=== PATIENT | female | born 1965 | race Caucasian/White ===

== ENCOUNTER 2016-12-22 08:39 | Day surgery (SDC) | payer BC, OTHER ==
[2016-12-22] VITALS (15 sets, daily range): BP systolic 102–130; BP diastolic 61–74; PULSE 60–101; TEMP 97.3–98.4
[~2016-12-22] VITALS: Ht 160.1 cm; Wt 81.3 kg
[~2016-12-22 08:39] MED LIST: CELEBREX; LORTAB 5/500 501 TAB PO; MOBIC15 MG PO; NEURONTIN300 MG/CAP PO; NO HOME MEDICATIONS; PHENERGAN 25 TA25 MG PO; SEPTRA DS 8001 TAB PO; ZANTAC 150MG T150 MG PO; ZITHROMAX Z PA250 MG PO
[2016-12-22 09:36] LABS: HEMATOCRIT 38.6 % (37.0-47.0); HEMOGLOBIN 12.5 g/dl (12.5-16.0); MEAN CELL VOLUME 81 fl (80.0-100.0); MEAN CORPUSCULAR HEMOGLOBIN 26 pg (27.0-31.0); MEAN CORPUSCULAR HGB CONC 32 g/dl (33.0-37.0); MEAN PLATELET VOLUME 9.7 fl (7.4-10.4); PLATELET COUNT 329 K/mm3 (130-400); RED BLOOD COUNT 4.76 M/mm3 (4.10-5.30); REDCELL DISTRIBUTION WIDTH-CV 13.5 % (11.5-14.5); WHITE BLOOD COUNT 12.2 K/mm3 (4.8-10.8)
[2016-12-22 09:47] LABS: CALCIUM 9.6 mg/dL (8.4-10.2); CREATININE, serum 0.58 mg/dL (0.52-1.25); POTASSIUM 4.2 mmol/L (3.4-5.0)
[2016-12-22] MEDS ORDERED: PREDNISONE20 MG PO (09:47)
[2016-12-22] MEDS ORDERED: ZANTAC 150MG T150 MG PO (09:54)
== END 2016-12-22 18:47 | disposition home or self-care (01) ==
LOC: COL.CAR 08:39
PROVIDERS: Internal Medicine Interventional Cardiology
DX: R94.39 Abnormal result of other cardiovascular function study (principal); R06.02 Shortness of breath; R07.89 Other chest pain; R00.2 Palpitations; R60.0 Localized edema; M79.604 Pain in right leg; M79.605 Pain in left leg; Z79.899 Other long term (current) drug therapy
CPT/HCPCS: C1760; C9113; J1200; J2250; J2930; J3010; Q9967

== ENCOUNTER → 2017-01-05 | Outpatient (CLI) | payer BC, OTHER ==
[~2017-01-05] MED LIST changes: +PREDNISONE20 MG PO
== END ==
LOC: COL.RAD 07:47
DX: K21.9 Gastro-esophageal reflux disease without esophagitis (principal)

== ENCOUNTER 2017-08-25 09:45 | Emergency (ER) | payer BC ==
[~2017-08-25] VITALS: Ht 157.5 cm; Wt 76.4 kg
[~2017-08-25 09:45] MED LIST changes: +FLEXERIL 1010 MG/TAB PO; +LEXAPRO20 MG PO
[2017-08-25 09:58] VITALS: TEMP 97.4
[2017-08-25 11:54] LABS: BASO % 0.4 % (0.0-2.0); EOS # 0.2 (0.0-0.7); EOS % 2.4 % (0-4.0); GRAN # 3.2 (1.4-6.5); GRAN % 48.1 % (42.2-75.2); HEMATOCRIT 40.2 % (37.0-47.0); HEMOGLOBIN 13.2 g/dl (12.5-16.0); LYMPH # 2.8 (1.2-3.4); LYMPH % 41.8 % (20.0-51.0); MEAN CELL VOLUME 84 fl (80.0-100.0); MEAN CORPUSCULAR HEMOGLOBIN 28 pg (27.0-31.0); MEAN CORPUSCULAR HGB CONC 33 g/dl (33.0-37.0); MEAN PLATELET VOLUME 8.8 fl (7.4-10.4); MONO # 0.5 (0.1-0.6); PLATELET COUNT 259 K/mm3 (130-400); REDCELL DISTRIBUTION WIDTH-CV 13.7 % (11.5-14.5)
[2017-08-25 12:07] LABS: ALBUMIN 4.4 gm/dL (3.5-5.0); BILIRUBIN,TOTAL 0.7 mg/dL (0.0-1.0); C-REACTIVE PROTEIN 0.9 mg/dL (0.0-0.9); CALCIUM 9.8 mg/dL (8.4-10.2); CREATININE, serum 0.73 mg/dL (0.52-1.25); TOTAL PROTEIN 7.1 gm/dL (6.4-8.2)
[2017-08-25] MEDS ORDERED: ATIVAN 1MG T1 MG/TAB PO (13:24)
[2017-08-25 13:41] VITALS: BP 116/70; PULSE 63
== END 2017-08-25 13:43 | disposition home or self-care (01) ==
LOC: COL.ER 09:45
PROVIDERS: Nurse Practitioner
DX: M26.602 Left temporomandibular joint disorder, unspecified (principal); F41.9 Anxiety disorder, unspecified
CPT/HCPCS: J1885

== ENCOUNTER → 2017-08-27 | Outpatient (CLI) | payer BC ==
[~2017-08-27] MED LIST changes: +ATIVAN 1MG T1 MG/TAB PO
== END ==
LOC: MC.RAD 09:31
DX: Z12.31 Encounter for screening mammogram for malignant neoplasm of breast (principal); R92.8 Other abnormal and inconclusive findings on diagnostic imaging of breast

== ENCOUNTER → 2017-08-30 | Outpatient (CLI) | payer BC | LOC: MC.RAD 13:51 | DX: D24.1 Benign neoplasm of right breast (principal); D24.2 Benign neoplasm of left breast ==

== ENCOUNTER → 2018-08-21 | Outpatient (CLI) | payer BC | LOC: COL.RAD 11:25 | DX: K76.0 Fatty (change of) liver, not elsewhere classified (principal) ==

== ENCOUNTER 2018-09-09 08:30 | Outpatient (RCR) | payer OTHER | END 2018-10-01 11:33 | disposition home or self-care (01) | LOC: WSOH 08:30 | DX: S66.115A Strain of flexor muscle, fascia and tendon of left ring finger at wrist and hand level, initial encounter (principal); S66.113A Strain of flexor muscle, fascia and tendon of left middle finger at wrist and hand level, initial encounter; W00.0XXA Fall on same level due to ice and snow, initial encounter; Y93.01 Activity, walking, marching and hiking; Y92.481 Parking lot as the place of occurrence of the external cause; Y99.0 Civilian activity done for income or pay; Z79.899 Other long term (current) drug therapy ==

== ENCOUNTER → 2019-06-27 | Outpatient (CLI) | payer BC | LOC: COL.RAD 12:45 | DX: J32.9 Chronic sinusitis, unspecified (principal) ==

== ENCOUNTER 2020-07-20 16:59 | Inpatient (IN) | payer BC ==
[~2020-07-20] VITALS: Ht 160 cm; Wt 78.1 kg
[2020-07-20 17:30] LABS: BASO % 0.3 % (0.0-2.0); EOS # 0.1 (0.0-0.7); EOS % 1.3 % (0-4.0); GRAN # 5.9 (1.4-6.5); GRAN % 63.8 % (42.2-75.2); HEMATOCRIT 38.7 % (37.0-47.0); HEMOGLOBIN 12.6 g/dl (12.5-16.0); LYMPH # 2.7 (1.2-3.4); LYMPH % 28.9 % (20.0-51.0); MEAN CELL VOLUME 82 fl (80.0-100.0); MEAN CORPUSCULAR HEMOGLOBIN 27 pg (27.0-31.0); MEAN CORPUSCULAR HGB CONC 33 g/dl (33.0-37.0); MEAN PLATELET VOLUME 8.8 fl (7.4-10.4); MONO # 0.5 (0.1-0.6); MONO % 5.3 % (1.7-9.3); PLATELET COUNT 250 K/mm3 (130-400); RED BLOOD COUNT 4.75 M/mm3 (4.10-5.30); REDCELL DISTRIBUTION WIDTH-CV 13.2 % (11.5-14.5)
[2020-07-20 17:42] LABS: ALANINE AMINOTRANSFERASE 18 U/L (4-34); ALBUMIN 4.4 gm/dL (3.5-5.0); ALKALINE PHOSPHATASE 108 U/L (50-136); ANION GAP 10 mmol/L (7-16); AST,SGOT 23 U/L (15-37); BILIRUBIN,TOTAL 0.4 mg/dL (0.0-1.0); BLOOD UREA NITROGEN 11 mg/dL (7-17); CALCIUM 9.7 mg/dL (8.4-10.2); CARBON DIOXIDE 23 mmol/L (22-30); CHLORIDE 104 mmol/L (98-107); CREATININE, serum 0.73 (0.52-1.25); GLUCOSE 149 mg/dL (74-106); LIPASE 64 U/L (23-300); POTASSIUM 3.7 mmol/L (3.4-5.0); SODIUM 136 mmol/L (137-145); TOTAL PROTEIN 7.1 gm/dL (6.4-8.2)
[2020-07-20 17:43] LABS: C-REACTIVE PROTEIN < 0.5 mg/dL (0.0-0.9)
[2020-07-20] MEDS ORDERED: DESYREL 50MG50 MG PO (19:40)
[2020-07-20] MEDS ORDERED: VALIUM 5MG T5 MG/TAB PO (19:40)
[2020-07-20] MEDS ORDERED: CYMBALTA 30MG30 MG PO (19:41)
[2020-07-20 19:44] LABS: COLLECTION METHOD CLEAN CATCH
[2020-07-20 20:10] LABS: PH 8 (5-8); SQUAMOUS EPITHELIAL 0-2 /hpf; URINE APPEARANCE Clear; URINE BACTERIA None Seen /hpf; URINE BILIRUBIN Negative (NEGATIVE); URINE BLOOD Negative (NEGATIVE); URINE COLOR Yellow; URINE GLUCOSE Negative (NEGATIVE); URINE KETONE Negative (NEGATIVE); URINE LEUKOCYTE ESTERASE Trace (NEGATIVE); URINE NITRATE Negative (NEGATIVE); URINE PROTEIN(semi-quant) Negative (NEGATIVE); URINE RBC 0-2 /hpf; URINE UROBILINOGEN Negative (NEGATIVE)
--- NOTE | 2020-07-20 22:24 | NUR ---
Arrived to surgical floor at 2130. Assessment complete. Lungs clear. Heart sounds normal. Bowels active x4. Pulses present throughout. No edema noted. INT left hand flushed and fluids started without complications. Patient reporting "room is spinning." Given PRN phenergan. Med rec complete. Provided patient with scheduled meds. Purewick in place as ordered. Patient unable to roll/open eye/stand at this time without "feeling sick." Neuro check complete. Orientated to surgical floor. All questions answered. Will closely monitor.
[2020-07-20 22:40] VITALS: BP 101/52; PULSE 65; TEMP 98
--- NOTE | 2020-07-20 23:30 | NUR ---
Resting in bed. Denies needs. Call light in reach.
[2020-07-21] VITALS (9 sets, daily range): BP systolic 80–119; BP diastolic 37–62; PULSE 54–94; TEMP 97.3–98.6
--- NOTE | 2020-07-21 03:49 | NUR ---
Resting in bed. Denies pain. Denies needs at this time. Call light in reach.
--- NOTE | 2020-07-21 05:26 | NUR ---
Patient remained on bedrest during night. Able to minimally open eyes this AM. Continues to report "room spinning." Otherwise uneventful night. Resting in bed currently with call light in reach.
--- NOTE | 2020-07-21 07:07 | NUR ---
Report given to KAIT Dave
--- NOTE | 2020-07-21 10:43 | NUR ---
Initial visit; Patient thanked Top Loader for offering prayer and God's blessings.
--- NOTE | 2020-07-21 11:47 | NUR ---
Patient to MRI with radiology techs.
--- NOTE | 2020-07-21 13:36 | NUR ---
Dike Supervisor met with patient after rounds to discuss discharge planning. Patient has a washcloth over her eyes and states she is still not feeling well and that it helps with the vertigo. Patient lives in [place] and sees Dr. Alberto for primary care. Patient states she also sees Jenniffer at [facility] for her PTSD and Depression/Anxiety. Patient obtains medications from [facility] with no difficulties. Patient states her son, Jasmeet (ph#[phone]) and daughter in law, Karolina are DPOA-HC. SW did not locate copy in EMR. Patient plans to return home upon discharge. GENO contacted Dr. Alberto's office and requested a copy of DPOA-HC be faxed to the floor. The retail center receptionist advised she would look for it and fax it over once she finds it. GENO contacted patient's son, Jasmeet to review discharge plan. Jasmeet does not have any questions or concerns at this time. GENO will continue to follow.
--- NOTE | 2020-07-21 16:26 | NUR ---
Dr. Alberto's office contacted [employer] and advised that they do not have any Advance Directives for patient.
--- NOTE | 2020-07-21 17:09 | NUR ---
Patient resting in bed. Reports nausea & pain managed at this time. rounded, orders obtained. Ivf per orders. Patient continues to use bedpan to void. I encouraged activity. She has been able to sit up and tolerated meals slowly.
--- NOTE | 2020-07-21 17:57 | NUR ---
Patient having migraine. Spoke with Terri Gregorio. Warner & Gretta given per orders. Patietn unsure of her home medication she take for migraine. SHe is going to attempted to eat dinner.
--- NOTE | 2020-07-21 21:00 | NUR ---
Resting in bed. Assessment complete. Lungs clear. Heart sounds normal. Bowels active x4. Pulses present throughout. No edema noted. IV left hand infusing without complications. Denies pains. Reports nausea and "room spinning." Given PRN zofran. Will monitor. Call light in reach.
--- NOTE | 2020-07-21 23:36 | NUR ---
Resting in bed. Denies needs. Call light in reach.
[2020-07-22] VITALS (8 sets, daily range): BP systolic 110–121; BP diastolic 41–66; PULSE 56–68; TEMP 97.7–98.7
--- NOTE | 2020-07-22 05:15 | NUR ---
Patient reporting nausea and headache. Upon arrival in room patient reporting left sided chest pain with radiation to back. Rema MCCLELLAN notifed. EKG and labs and morphine ordered.
--- NOTE | 2020-07-22 05:46 | NUR ---
Continues to report chest pain. 01/13. Now reporting "bad dream" that she recently woke up from. Reporting anxiety and usually gets anxiety with bad dreams but "never had this chest pain before." Rema MCCLELLAN notified. Ordered ativan. Will provide to patient.
--- NOTE | 2020-07-22 06:02 | NUR ---
Patient required PRN zofran during night for nausea and "room spinning." x1 dose of tylenol for headache this AM. Patient also reported around 0515 left sided chest pain with radiation to back. Hospitalist notified and patient was given morphine without any relief. Patient then reported a history of "bad dreams" with anxiety but "never" chest pains and then reported x1 "bad dream" this AM with feelings of anxiety. Rema MCCLELLAN notified of this information. Ordered x1 dose of ativan and was provided to patient. Patient reported mild relief with ativan. Will continue to monitor.
--- NOTE | 2020-07-22 06:44 | NUR ---
Report given to KAIT Garcia
[2020-07-22 10:12] LABS: GLUCOSE,CSF 56 mg/dL (40-70); TOTAL PROTEIN,CSF 47 mg/dL (15-45)
[2020-07-22 10:56] LABS: CSF APPEARANCE CLEAR; CSF COLOR COLORLESS; CSF RBC 43 /mm3 (0-0)
[2020-07-22 10:57] LABS: CSF MONONUCLEAR 100 % (70-100); CSF POLYMORPHONUCLEAR 0 % (0-6)
--- NOTE | 2020-07-22 18:29 | NUR ---
Patient resting in bed at this time. Patient is alert and oriented, answers questions appropriately. Patient has been able to ambulate independently from bathroom to bed. Patient c/o nausea once, administered PRN zofran per order. Patient denies pain or further needs, call light within reach.
--- NOTE | 2020-07-22 20:00 | NUR ---
TAKES HS MEDS PER HER REQUEST. IS ALERT AND ORIENTED X4. DENIES DIZZINESS AT THIS TIME. IVF INFUSING TO LEFT HAND WITHOUT REDNESS OR SWELLING. DENIES PAIN.
[2020-07-23 04:04] VITALS: BP 109/71; PULSE 63; TEMP 98
--- NOTE | 2020-07-23 04:15 | NUR ---
UP TO BATHROOM ON OWN. REPORTS MINIMAL DIZZINESS, GAIT IS STEADY.
--- NOTE | 2020-07-23 07:02 | NUR ---
PT RESTING IN BED AT BEDSIDE SHIFT REPORT. C/O DIZZINESS THIS AM. BED IN LOW, CALL LIGHT WITHIN REACH, BED ALARM ON
[2020-07-23 08:04] VITALS: BP 114/66; PULSE 68; TEMP 97.5
[2020-07-23] MEDS ORDERED: ANTIVERT 25MG25 MG PO (08:49)
[2020-07-23] MEDS ORDERED: ZOFRAN 4MG T4 MG/TAB PO (08:49)
--- NOTE | 2020-07-23 10:06 | NUR ---
IV DISCONTINUED BY THIS NURSE, PRN ERICFRAN GIVEN THIS AM FOR NAUSEA. PT EDUCATION AND APPOINTMENTS REVIEWED WITH PT, OVER THE COUNTER MEDICATIONS TAKEN WHILE HERE WERE WRITTEN DOWN FOR PT. PT DENIED QUESTIONS. THIS NURSE ASSISTED PT TO PRIVATE VEHICLE VIA WHEELCHAIR. ASSISTED HER INTO THE CAR AND BUCKELED FOR DRIVE HOME.
[2020-07-23 12:08] LABS: HSV 2 DNA PCR QUAL Not Detected (())
== END 2020-07-23 10:00 | disposition home or self-care (01) | DRG 149 ==
LOC: COL.ER 16:59 → SURG 18:54
PROVIDERS: Family Medicine; Psychiatry & Neurology Neurology; ADMIT Hospitalist
DX: R42 Dizziness and giddiness (principal); R11.2 Nausea with vomiting, unspecified; R07.9 Chest pain, unspecified; F32.9 Major depressive disorder, single episode, unspecified; F43.10 Post-traumatic stress disorder, unspecified; F51.4 Sleep terrors [night terrors]; G47.9 Sleep disorder, unspecified; Z20.828 Contact with and (suspected) exposure to other viral communicable diseases; K59.00 Constipation, unspecified; M26.609 Unspecified temporomandibular joint disorder, unspecified side; F41.9 Anxiety disorder, unspecified
CPT/HCPCS: 99223-AI; 99232-AI; 99239; A9585; J1200; J1650; J2060; J2270; J2405; J2550; J2765; J7030; J7120; Q9967

== ENCOUNTER 2020-11-02 14:45 | Outpatient (RCR) | payer MEDICAID ==
[~2020-11-02 14:45] MED LIST changes: +ANTIVERT 25MG25 MG PO; +CYMBALTA 30MG30 MG PO; +DESYREL 50MG50 MG PO; +VALIUM 5MG T5 MG/TAB PO; +ZOFRAN 4MG T4 MG/TAB PO
== END 2020-12-21 13:40 | disposition home or self-care (01) ==
LOC: MKS.ESL.PT 14:45
DX: H81.10 Benign paroxysmal vertigo, unspecified ear (principal); Z90.710 Acquired absence of both cervix and uterus

== ENCOUNTER 2021-03-04 15:17 | Outpatient (RCR) | payer MEDICAID ==
[2021-03-10] MEDS ORDERED: PRILOTC PO (21:13)
[2021-03-10] MEDS ORDERED: ZOFRAN ODT4 MG PO (21:13)
== END 2021-06-02 | disposition home or self-care (01) ==
LOC: MKS.ESL.PT
DX: H81.10 Benign paroxysmal vertigo, unspecified ear (principal)

== ENCOUNTER 2021-03-10 16:32 | Emergency (ER) | payer MEDICAID ==
[~2021-03-10] VITALS: Ht 160 cm; Wt 82.7 kg
[2021-03-10 18:26] LABS: BASO % 0.4 % (0.0-2.0); EOS # 0.2 (0.0-0.7); EOS % 1.8 % (0-4.0); GRAN # 4.9 (1.4-6.5); GRAN % 57.6 % (42.2-75.2); HEMOGLOBIN 12.2 g/dl (12.5-16.0); LYMPH # 2.8 (1.2-3.4); LYMPH % 32.9 % (20.0-51.0); MEAN CELL VOLUME 84 fl (80.0-100.0); MEAN CORPUSCULAR HEMOGLOBIN 27 pg (27.0-31.0); MEAN CORPUSCULAR HGB CONC 32 g/dl (33.0-37.0); MEAN PLATELET VOLUME 8.8 fl (7.4-10.4); MONO # 0.6 (0.1-0.6); MONO % 6.8 % (1.7-9.3); PLATELET COUNT 263 K/mm3 (130-400); RED BLOOD COUNT 4.52 M/mm3 (4.10-5.30); REDCELL DISTRIBUTION WIDTH-CV 13.6 % (11.5-14.5)
[2021-03-10 18:36] LABS: ALANINE AMINOTRANSFERASE 16 U/L (4-34); ALBUMIN 4.2 gm/dL (3.5-5.0); ALKALINE PHOSPHATASE 83 U/L (50-136); ANION GAP 10 mmol/L (7-16); AST,SGOT 20 U/L (15-37); BILIRUBIN,TOTAL 0.5 mg/dL (0.0-1.0); BLOOD UREA NITROGEN 10 mg/dL (7-17); CALCIUM 9.5 mg/dL (8.4-10.2); CARBON DIOXIDE 20 mmol/L (22-30); CHLORIDE 107 mmol/L (98-107); CREATININE, serum 0.78 (0.52-1.25); GLUCOSE 114 mg/dL (74-106); LIPASE 34 U/L (23-300); POTASSIUM 4.1 mmol/L (3.4-5.0); SODIUM 137 mmol/L (137-145); TOTAL PROTEIN 6.8 gm/dL (6.4-8.2)
[2021-03-10 18:55] LABS: TROPONIN-I < 0.012 ng/mL (0.000-0.035)
[2021-03-10 20:06] LABS: COLLECTION METHOD CLEAN CATCH
[2021-03-10 20:14] LABS: PH 7 (5-8); SQUAMOUS EPITHELIAL 0-2 /hpf; URINE APPEARANCE Clear; URINE BACTERIA None Seen /hpf; URINE BILIRUBIN Negative (NEGATIVE); URINE BLOOD Negative (NEGATIVE); URINE COLOR Straw; URINE GLUCOSE Negative (NEGATIVE); URINE KETONE Negative (NEGATIVE); URINE LEUKOCYTE ESTERASE Negative (NEGATIVE); URINE NITRATE Negative (NEGATIVE); URINE PROTEIN(semi-quant) Negative (NEGATIVE); URINE RBC 0-2 /hpf; URINE UROBILINOGEN Negative (NEGATIVE)
[2021-03-10] MEDS ORDERED: PRILOTC PO (21:13)
[2021-03-10] MEDS ORDERED: ZOFRAN ODT4 MG PO (21:13)
[2021-03-10 21:58] VITALS: BP 134/66; PULSE 82; TEMP 98
== END 2021-03-10 21:55 | disposition home or self-care (01) ==
LOC: COL.ER 16:32
PROVIDERS: Emergency Medicine
DX: R10.13 Epigastric pain (principal); R00.0 Tachycardia, unspecified; R11.2 Nausea with vomiting, unspecified
CPT/HCPCS: J2270; J2405; J3010; J7120; Q9967

== ENCOUNTER 2021-08-08 09:54 | Emergency (ER) | payer MEDICAID ==
[~2021-08-08] VITALS: Ht 157.5 cm; Wt 83.2 kg
[~2021-08-08 09:54] MED LIST changes: +PRILOTC PO; +ZOFRAN ODT4 MG PO
[2021-08-08 11:00] LABS: BASO % 0.4 % (0.0-2.0); EOS # 0.2 K/mm3 (0.0-0.7); EOS % 2.4 % (0.0-4.0); GRAN # 3.5 K/mm3 (1.4-6.5); GRAN % 51.5 % (42.2-75.2); HEMATOCRIT 40.2 % (37.0-47.0); LYMPH # 2.6 K/mm3 (1.2-3.4); LYMPH % 38.1 % (20.0-51.0); MEAN CELL VOLUME 83 fl (80.0-100.0); MEAN CORPUSCULAR HEMOGLOBIN 27 pg (27-31); MEAN CORPUSCULAR HGB CONC 32 g/dl (33.0-37.0); MONO # 0.5 K/mm3 (0.1-0.6); PLATELET COUNT 306 K/mm3 (130-400); RED BLOOD COUNT 4.86 M/mm3 (4.10-5.30); REDCELL DISTRIBUTION WIDTH-CV 13.5 % (11.5-14.5)
[2021-08-08 11:17] LABS: ALANINE AMINOTRANSFERASE 15 U/L (0-55); ALBUMIN 3.9 gm/dL (3.5-5.0); ALKALINE PHOSPHATASE 89 U/L (40-150); ANION GAP 11 mmol/L (7-16); AST,SGOT 16 U/L (5-34); BILIRUBIN,TOTAL 0.4 mg/dL (0.2-1.2); BLOOD UREA NITROGEN 10 mg/dL (10-20); CALCIUM 9.2 mg/dL (8.4-10.2); CARBON DIOXIDE 23 mmol/L (22-29); CHLORIDE 106 mmol/L (98-107); CREATININE, serum 0.84 mg/dL (0.57-1.11); GLUCOSE 117 mg/dL (70-99); POTASSIUM 4.2 mmol/L (3.5-4.5); SODIUM 140 mmol/L (136-145); TOTAL PROTEIN 6.8 gm/dL (6.2-8.1)
[2021-08-08 11:25] LABS: TROPONIN-I < 0.010 ng/mL (0.00-0.033)
[2021-08-08 13:09] VITALS: BP 116/69; PULSE 67
== END 2021-08-08 13:13 | disposition home or self-care (01) ==
LOC: COL.ER 09:54
PROVIDERS: Physician Assistant
DX: R07.89 Other chest pain (principal); F41.9 Anxiety disorder, unspecified; F32.A Depression, unspecified; Z79.899 Other long term (current) drug therapy